=== PATIENT | male | born 1950 | race Caucasian/White ===

== ENCOUNTER → 2019-08-08 10:34 | Outpatient (BNVA) | payer MEDICARE, SELFPAY | PROVIDERS: Family Provider Family Medicine; PCP Family Medicine; Visit Provider Otolaryngology | DX: J32.9 Chronic sinusitis, unspecified (principal) | CPT/HCPCS: 99213; 99214 ==

== ENCOUNTER 2019-10-07 12:16 | Day surgery (SDC) | payer MEDICARE, SELFPAY ==
[2019-10-07] VITALS (8 sets, daily range): BP systolic 105–139; BP diastolic 68–85; PULSE 76–98; RESP 16–25; TEMP 36.2–36.9; O2SAT 94–96; BMI 35.2
[2019-10-07 12:55] LABS: Glucose Point of Care 151 mg/dL (70-110)
--- NOTE | 2019-10-07 13:01 | P.ANESASSM_ITS ---
Pre-Anesthetic Assessment Pre-Anesthetic Assessment: Height/Weight: Height 1.7 m Weight 102.058 kg Temp Pulse Resp BP Pulse Ox 97.9 F 76 18 105/82 94 10/07/19 12:43 10/07/19 12:43 10/07/19 12:43 10/07/19 12:43 10/07/19 12:43 Preop Diagnosis: sinusitus Proposed Procedure: Operation Date: 10/07/19 13:10 Proposed Procedures p Endoscopic Endonasal Sinus Surgery 41643 J32.9(Not Applicable) - Karri Robledo MD Familial anesthetic complications: None Was Beta Ever taken within 24 h ours: Yes Last intake: Intake Last Liquid Date 10/07/19 Last Liquid Time 00:00 Last Solid Date 10/06/19 Last Solid Time 20:00 Social: Social History: No alcohol and No tobacco Exam: Pre-Anes Outpt Exam: alert, oriented x 3, clear to auscultation bilaterally and regular rate & rhythm Airway: Cervical ROM: WNL MP: 2 Dentition: Chipped Additional comments: missing Pulmonary: Pulmonary: None reported CV/HEM: CV/HEM: Afib and HTN Comments: Hypertrophic obstructive cardiomopathy - Keep afterload up, slow HR, decreased inotropy (echo 2019 ef 65%, mild avr, pvr, mildly increased LA size, and basal septal hypertrophy) : : None reported Comments: R kidney removed d/t tumor (nephrectomY) Hepatic: Hepatic: None reported GI: GI: None reported Metabolic: Metabolic: DM Comments: took metformin Musc/skel: Musc/skel: None reported Neuropsych: Neuropsych: None reported Anesthetic Plan: ASA status: 3 Anesthesia: General Other: off eliquis since monday Risk of > 500 ml blood loss (7ml/kg in children): No PFSH Anesthesia PFSH: Social History Smoking and tobacco status: never smoked Alcohol intake: never Data Anesthesia Other Labs: Laboratory Results - last 48 hr 10/07/19 12:52 POC Glucose 151 Cardiac Studies: No Data to Display
[2019-10-07] MEDS: sodium chloride 0.9% 1,000 ML 30 ML IV (13:27)
--- NOTE | 2019-10-07 14:01 | P.OP_ITS ---
Operative Report Date of procedure: October 07, 2019 Pre-op Diagnosis: chronic sinusitus Post-op diagnosis: same Post-op Findings: Chronic sinusitis Procedure Done: Endoscopic right maxillary sinusotomy with removal of diseased tissue, endoscopic right ethmoidectomy Specimens removed/disposition: Sinus contents Pathology: Sinus contents Surgeon: Karri Robledo Anesthesia: General Complications: None Condition: stable Disposition: PACU Brief History: Dalton Joy is a 69-year-old male who has chronic sinusitis that is failed medical management. Procedure: The patient was taken to the operating room and under satisfactory general endotracheal anesthesia the nose was prepped draped and inspected. The 0 degree endoscope was used throughout. There was purulent material in the right middle meatus. The middle turbinate was retracted medially allowing access to the middle meatus. The maxillary sinus ostia was identified. The ostia was cannulated with a curved antral suction. Purulent debris and thick green material was encountered. This was removed and sent for histopathologic evaluation. The backbiting forceps was used to open the office. The bulla ethmoidalis was entered. Hyperplastic mucosa was identified and removed with a Ines forceps. The cribriform and the grand lamella was identified and preserved. Once all diseased tissue had been removed Surgi-Manan was placed in the middle meatus. The globes were palpated throughout the procedure and remained soft. Postoperatively visual richter were at preoperative levels. The patient tolerated the procedure well and was allowed to awaken and taken to recovery room where he was observed. During observation postoperative care instructions and counseling including detailed and written and verbal instructions are given to the patient. Once the patient verbalized understandin g of all instructions and once he met discharge criteria he was discharged in satisfactory and stable condition.
[2019-10-07] MEDS: oxymetazoline 0.05% Nasal Spray 15 mL 1 SPRAY NOSTRIL-B (15:03)
--- NOTE | 2019-10-07 15:43 | SUR.PHASEI ---
1540 PATIENT TO OPS AT THIS TIME. RR EVEN AND UNLABORED. DRESSING INTACT TO NOSE.
--- NOTE | 2019-10-07 15:44 | SUR.PHASEI ---
1519 PATIENT TO PACU AT THIS TIME. RR EVEN AND UNLABORED. DRESSING TO NOSE, CDI.
--- NOTE | 2019-10-07 15:51 | SUR.PHASEII ---
PATIENT IS LEAVING VIA CAB TO A MOTEL TO SPEND THE NIGHT. HE WILL DRIVE HIMSELF HOME TOMORROW.
[2019-10-07] MEDS: TRAMadol 50 mg Tablet PO (16:32)
== END 2019-10-07 17:35 | disposition home or self-care (01) ==
PROVIDERS: Family Provider Family Medicine; PCP Family Medicine; Visit Provider Otolaryngology
PROC: (CPT 31231; principal; 2019-10-07 13:10)
DX: J32.9 Chronic sinusitis, unspecified (principal); I48.91 Unspecified atrial fibrillation; E11.9 Type 2 diabetes mellitus without complications; I10 Essential (primary) hypertension; Z82.49 Family history of ischemic heart disease and other diseases of the circulatory system; Z01.818 Encounter for other preprocedural examination
CPT/HCPCS: 31255; 31267; 12345; 36416; 82962; 88304; 88305; 99213; 99214; J2001; J2704; J3010; J7030

== ENCOUNTER → 2019-10-21 10:47 | Outpatient (BNVA) | payer MEDICARE, SELFPAY | PROVIDERS: Family Provider Family Medicine; PCP Family Medicine; Visit Provider Otolaryngology | DX: J32.9 Chronic sinusitis, unspecified (principal) | CPT/HCPCS: 31237; 99024 ==

== ENCOUNTER 2021-04-27 11:23 | Outpatient (CLI) | payer MEDICARE, SELFPAY ==
--- NOTE | 2021-04-27 11:29 | MR_ITS ---
WS: [id number] INDICATION: Kidney removal 2005 TECHNIQUE: MR of the abdomen without and with gadolinium enhancement. Axial T1, T2, coronal T2, coron al 2-D fiesta, and multiplanar post gadolinium imaging with fat saturation technique. FINDINGS: Some images degraded by breathing artifact. Postoperative changes cholecystectomy. Prior right nephrectomy. Nephrectomy bed is normal in appearan ce. No evidence of recurrent mass or lesion in the nephrectomy bed. Left kidney is normal in appearan ce. No hydronephrosis in the left kidney. Small amount of perinephric edema. Normal portal vein and splenic vein. Normal common bile duct. Normal pancreas. Adrenal glands are nor mal. Normal caliber abdominal aorta. T2 hyperintense lesion in the inferior right hepatic lobe measur ing 3.1 x 3.1 cm with patchy peripheral enhancement most consistent with benign cavernous hemangioma. Additional tiny cyst in the inferior right hepatic lobe. MR/MR abdomen wo/w con* [id number] IMPRESSION: 1. Prior right nephrectomy. Nephrectomy bed is normal in appearance. No eviden ce of recurrent mass or lesion in the nephrectomy bed. 2. Left kidney is normal in appearance. 3. Normal adrenal glands. 4. Prior cholecystectomy. 5. T2 hyperintense lesion in the inferior right hepatic lobe measuring 3.1 x 3.1 cm with patchy peripheral enhancement most consistent with benign cavernous hemangioma
== END 2021-04-27 11:24 | disposition home or self-care (01) ==
LOC: RADSHAW 11:27
PROVIDERS: PCP Nurse Practitioner Family; Visit Provider Nurse Practitioner Family
DX: Z90.5 Acquired absence of kidney (principal); Z90.49 Acquired absence of other specified parts of digestive tract; K76.9 Liver disease, unspecified
CPT/HCPCS: 74183; A9579

== ENCOUNTER → 2022-05-26 14:01 | Outpatient (BNVA) | payer MEDICARE, SELFPAY | PROVIDERS: PCP Family Medicine; Visit Provider Internal Medicine Cardiovascular Disease | DX: I42.2 Other hypertrophic cardiomyopathy (principal); I10 Essential (primary) hypertension; I48.91 Unspecified atrial fibrillation; Z79.01 Long term (current) use of anticoagulants; E11.9 Type 2 diabetes mellitus without complications; Z79.84 Long term (current) use of oral hypoglycemic drugs | CPT/HCPCS: 99213; 99214 ==

== ENCOUNTER 2023-04-10 14:56 | Emergency (ER) | payer MEDICARE, SELFPAY ==
[2023-04-10 14:59] VITALS: BP 164/95; PULSE 79; RESP 16; TEMP 36.4; O2SAT 96; BMI 33.6
--- NOTE | 2023-04-10 15:11 | ECG_ITS ---
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 Measurements Intervals [place] Rate: 87 P: 0 VT: 0 QRS: 7 QRSD: 130 T: 129 QT: 364 QTc: 439 Interpretive Statements ATRIAL FIBRILLATION ANTEROSEPTAL MYOCARDIAL INFARCTION , OF INDETERMINATE AGE [40+ ms Q WAVE IN V1-V4] MODERATE T-WAVE ABNORMALITY, CONSIDER LATERAL ISCHEMIA [-0.1+ mV T-WAVE IN I/aVL/V5/V6] No previous ECG available for comparison Electronically Signed On 04-10-2023 22:29:27 CDT by Jonnie Paez M.D. [email or web address]
--- NOTE | 2023-04-10 15:12 | CTR_ITS ---
PROCEDURE INFORMATION: Exam: CT Head Without Contrast Exam date and time: 04/10/2023 3:21 PM Age: 73 years old Clinical indication: Visual disturbance; Additional info: Vision changes left hand numbness TECHNIQUE: Imaging protocol: Computed tomography of the head without contrast. Radiation optimization: All CT scans at this facility use at least one of these dose optimization techniques: automated exposure control; mA and/or kV adjustment per patient size (includes targeted exams where dose is matched to clinical indication); or iterative reconstruction. REPORTING DATA: Count of CT and Cardiac NM exams in prior 12 months: This patient has received 0 known CTs and 0 known cardiac nuclear medicine studies in the 12 months prior to the current study. COMPARISON: No relevant prior studies available. RADIATION DOSE METRICS: Total DLP (mGy-cm): 1109.48 FINDINGS: Brain: Diffuse cerebral atrophy, consistent with patient's age. No hemorrhage. Chronic right frontal encephalomalacia. Smaller area of right occipital encephalomalacia. Otherwise preserved hilliard-white matter differentiation. Old lacunar infarct versus prominent perivascular space at the right basal ganglia. Mild patchy cerebral white matter hypoattenuation in keeping with chronic microvascular ischemic change. No mass effect. Intracranial vascular calcifications. Cerebral ventricles: Ventricles are in proportion to the degree of atrophy. Paranasal sinuses: Complete opacification of the right frontal and partially imaged right maxillary sinuses with periosteal thickening. Near complete opacification of the right ethmoid air cells. Mastoid air cells: Visualized mastoid air cells are well aerated. Bones/joints: Unremarkable. No acute fracture. Soft tissues: Unremarkable. CT/CT head wo con* [id number] IMPRESSION: 1. No acute intracranial findings. 2. Diffuse cerebral atrophy and chronic microvascular ischemic change with areas of chronic appearing encephalomalacia at the right frontal and occipital lobes. 3. Chronic severe right paranasal sinus disease.
[2023-04-10 15:50] LABS: Basophils % 0.5 %; Eosinophils # 0.1 10^3/uL (0.0-0.8); Eosinophils % 1.6 %; Hematocrit 47.5 % (37-53); Lymphocytes # 1.4 10^3/uL (0.8-4.8); Lymphocytes % 16.4 %; Mean Corpuscular HGB Conc 34.9 g/dL (30-55); Mean Corpuscular Hemoglobin 32.4 pg (27-33); Mean Corpuscular Volume 92.6 fl (82-101); Mean Platelet Volume 10.9 fL (7.4-10.4); Monocytes # 0.7 10^3/uL (0.2-0.9); Monocytes % 8.5 %; Neutrophils % 72.8 %; Nucleated Red Blood Cells % 0 %; Platelet Count 229 10^3/cmm (157-399); Red Blood Count 5.13 10^6/uL (3.85-5.65); Red Cell Distribution Width 11.9 % (12.1-15.1); White Blood Count 8.66 10^3/uL (3.29-11.43)
--- NOTE | 2023-04-10 15:56 | ED_ITS ---
HPI - General Adult General: Chief complaint: Eye Problems Stated complaint: weakness in left hand, vision problems Time Seen by Provider: 04/10/23 15:10 Source: patient Mode of arrival: ambulatory History of Present Illness: 73-year-old male presents emergency room with 5 days of symptoms of vision changes bilaterally and about 3 days of what he feels like his ataxia and loss of sensation in his left hand. He has not had any headache no trauma. He takes apixaban for atrial fibrillation. He has not had any fever sweats chills or abdominal pain speech and swallowing have remained unaffected. The left hand numbness seems to have resolved. Onset (ago): day(s) (5) Severity: mild Relieving factors: none Exacerbating factors: none Associated symptoms: Deny chest pain, confusion, cough, diaphoresis, decreased appetite, dyspnea, fevers/chills, headache(s), malaise, nausea, rash, palpitations, seizures, short of breath, syncope, vomiting or weakness Review of Systems Const: Denies: fever(s), chills, malaise or diaphoresis ENMT: Denies: throat pain, ear or mastoid pain, nasal discharge or nasal congestion Card: Denies: chest pain, palpitations or syncope Resp: Denies: dyspnea GI: Denies: nausea or vomiting : Denies: flank pain, dysuria, urinary frequency or urinary urgency Skin/Breast: Denies: rash Neuro: Denies: headache(s) or confusion [facility] [place] ED PFSH: Medical History (Updated 04/10/23 @ 16:40 by Cruzito Roberto DO) Atrial fibrillation Cardiomyopathy Chronic sinusitis Diabetes type 2, controlled Hypertension Surgical History History of cholecystectomy History of nasal surgery History of nephrectomy, right History of tonsillectomy and adenoidectomy Family History Father Myocardial infarction Brother Myocardial infarction Social History Smoking and tobacco status: never smoked Alcohol intake: never Substance/Drug Use: never Course Vital Signs: Vital signs: Vital Signs Temperature 97.6 F 04/10/23 14:59 Pulse Rate 81 04/10/23 17:13 Respiratory Rate 16 04/10/23 17:13 Blood Pressure 137/79 04/10/23 16:45 Pulse Oximetry 99 04/10/23 17:13 MDM - General Adult Medical Decision Making Slight decrease in left washer meat strength vision symptoms have resolved. Nothing acute on the CT. We will set him up for an MRI as well as carotid studies and follow-up with neurology return if has worsening symptoms. Repeat exam at time of discharge there is no focal neurologic deficits. He is already on Eliquis we will add baby aspirin daily he is also already on a statin. Medical Records I reviewed the patient's medical records. Lab Data I reviewed the patient's lab results. 04/10/23 15:44 04/10/23 15:[address] 04/10/23 15:12 IMPRESSION: 1. No acute intracranial findings. 2. Diffuse cerebral atrophy and chronic microvascular ischemic change with areas of chronic appearing encephalomalacia at the right frontal and occipital lobes. 3. Chronic severe right paranasal sinus disease. Laboratory Results WBC 8.66 10^3/uL (3.29-11.43) 04/10/23 15:44 RBC 5.13 10^6/uL (3.85-5.65) 04/10/23 15:44 Hgb 16.60 g/dL (11.27-16.99) 04/10/23 15:44 Hct 47.5 % (37-53) 04/10/23 15:44 MCV 92.6 fl (82-101) 04/10/23 15:44 MCH 32.4 pg (27-33) 04/10/23 15:44 MCHC 34.9 g/dL (30-55) 04/10/23 15:44 RDW 11.9 % (12.1-15.1) L 04/10/23 15:44 Plt Count 229 10^3/cmm (157-399) 04/10/23 15:44 MPV 10.9 fL (7.4-10.4) H 04/10/23 15:44 Neut % (Auto) 72.8 % 04/10/23 15:44 Lymph % (Auto) 16.4 % 04/10/23 15:44 [place] % (Auto) 8.5 % 04/10/23 15:44 Eos % (Auto) 1.6 % 04/10/23 15:44 Baso % (Auto) 0.5 % 04/10/23 15:44 Neut # (Auto) 6.30 10^3/uL (1.8-7.7) 04/10/23 15:44 Lymph # (Auto) 1.4 10^3/uL (0.8-4.8) 04/10/23 15:44 [place] # (Auto) 0.7 10^3/uL (0.2-0.9) 04/10/23 15:44 Eos # (Auto) 0.1 10^3/uL (0.0-0.8) 04/10/23 15:44 Baso # (Auto) 0.0 10^3/uL (0.0-0.1) 04/10/23 15:44 Nucleated RBC % (auto) 0 % 04/10/23 15:44 Nucleated RBCs # 0.0 /100WBC 04/10/23 15:44 Sodium 134 mmol/L (136-145) L 04/10/23 15:44 Potassium 4.7 mmol/L (3.5-5.1) 04/10/23 15:44 Chloride 99 mmol/L (98-107) 04/10/23 15:44 Carbon Dioxide 23 mmol/L (22-29) 04/10/23 15:44 Anion Gap 16.7 (5-19) 04/10/23 15:44 BUN 22 mg/dL (8-23) 04/10/23 15:44 Creatinine 1.4 mg/dL (0.7-1.2) H 04/10/23 15:44 GFR Calculation Not Reportable 04/10/23 15:44 Glucose 325 mg/dL (65-115) H 04/10/23 15:44 Calculated Osmolality 294 mOsm/kg (285-295) 04/10/23 15:44 Calcium 9.1 mg/dL (8.5-10.5) 04/10/23 15:44 Total Bilirubin 0.7 mg/dL (0.15-1.2) 04/10/23 15:44 AST 16 U/L (0-40) 04/10/23 15:44 ALT 12 U/L (0-41) 04/10/23 15:44 Alkaline Phosphatase 112 U/L (40-130) 04/10/23 15:44 Total Protein 7.1 g/dL (6.6-8.7) 04/10/23 15:44 Albumin 4.1 g/dL (3.5-5.2) 04/10/23 15:44 Globulin 3.0 g/dL (1.3-4.6) 04/10/23 15:44 Discharge Plan Discharge Patient Disposition: Home Clinical Impression: CVA (cerebral vascular accident), Hypertrophic cardiomyopathy, Type 2 diabetes mellitus, Atrial fibrillation Condition: Stable Prescriptions: New aspirin 81 mg tablet,delayed release (DR/EC) 81 mg PO DAILY Qty: 30 0RF No Action metformin 1,000 mg tablet extended release 24hr 1,000 mg PO BID metoprolol succinate 50 mg capsule,sprinkle,ER 24hr 50 mg PO Q24H omeprazole magnesium 20 mg tablet,delayed release (DR/EC) 20 mg PO .EVERY OTHER DAY multivitamin Tablet 1 tab PO QAM niacin 500 mg tablet extended release 500 mg PO BID omega 5-osq-ivi-fish oil [Fish Oil] 1,000 mg (120 mg-180 mg) capsule 1 cap PO BID atorvastatin 40 mg tablet 40 mg PO .QOD Farxiga 5 mg tablet 5 mg PO DAILY Eliquis 5 mg tablet 5 mg PO BID Qty: 180 3RF Ozempic 0.25 mg or 0.5 mg(2 mg/1.5 mL) pen injector 1 mg SUBCUT Q7D Qty: 1.5 11RF Discharge Orders: Discharge ED (Routine); Ordered 04/10/23 Ordered By: Cruzito Roberto Referrals: Karri Roper MD [Primary Care Provider] - Discharge Diet: Usual diet Discharge Activity: Increase activity as tolerated Patient Instructions: Opioid Safety, Pain Management Activity Restrictions/Additional Instructions: You are seen today for vision changes and weakness in your left hand. Your symptoms began long enough ago that intervention. CT of your head acute changes. Recommend that you add a baby aspirin daily to your current regimen continue the apixaban atorvastatin. Case management make arrangements for an MRI of the head as well as carotid duplex and follow-up with neurology. Coding Level of Care Code ED Spray Crew for Kervin Strauss NIH stroke score NIHSS Level Of Consciousness - 1a: 0 Level Of Consciousness Questions - 1b: Both Correct Level Of Consciousness Commands - 1c: Both Correct Best Gaze - 2: Normal Visual Mcleod - 3: No Visual Loss Facial Palsy - 4: Normal Motor Arm Right - 5: No Drift Motor Arm Left - 5: No Drift Motor Leg Right - 6: No Drift Motor Leg Left - 6: No Drift Limb Ataxia - 7: Absent Sensory - 8: Normal Best Language - 9: No Aphasia Dysarthia - 10: Normal Extinction And Inattention - 11: 0 Score Total Score: 0
[2023-04-10 16:07] VITALS: BP 121/85; PULSE 84; RESP 16; O2SAT 96
[2023-04-10 16:25] LABS: Alanine Aminotransferase 12 U/L (0-41); Albumin Level 4.1 g/dL (3.5-5.2); Alkaline Phosphatase 112 U/L (40-130); Anion Gap 16.7 (5-19); Aspartate Amino Transferase 16 U/L (0-40); Blood Urea Nitrogen 22 mg/dL (8-23); Calcium 9.1 mg/dL (8.5-10.5); Carbon Dioxide 23 mmol/L (22-29); Chloride 99 mmol/L (98-107); Glucose 325 mg/dL (65-115); Osmolality Calculated 294 mOsm/kg (285-295); Potassium 4.7 mmol/L (3.5-5.1); Sodium 134 mmol/L (136-145); Total Bilirubin 0.7 mg/dL (0.15-1.2); Total Protein 7.1 g/dL (6.6-8.7)
[2023-04-10 16:45] VITALS: BP 137/79; PULSE 80; RESP 16; O2SAT 97
[2023-04-10 17:13] VITALS: PULSE 81; RESP 16; O2SAT 99
--- NOTE | 2023-04-11 08:25 | DCPLANNER ---
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 delicatessen department manager faxed signed order to centralized scheduling, who will call patient with appointment information.
== END 2023-04-10 17:14 | disposition home or self-care (01) ==
PROVIDERS: Emergency Provider Family Medicine; PCP Family Medicine
DX: I63.9 Cerebral infarction, unspecified (principal); I42.2 Other hypertrophic cardiomyopathy; E11.9 Type 2 diabetes mellitus without complications; I48.91 Unspecified atrial fibrillation; Z79.01 Long term (current) use of anticoagulants; Z79.84 Long term (current) use of oral hypoglycemic drugs
CPT/HCPCS: 70450; 80053; 85025; 93005; 99285

== ENCOUNTER 2023-05-05 14:46 | Outpatient (CLI) | payer MEDICARE, SELFPAY ==
--- NOTE | 2023-05-05 14:56 | USCV_ITS ---
Dalton Tejada Age: 73 Gender: M : 1950 Exam Date: 05/05/2023 15:18 Ordering Phys: Cruzito Roberto DO Technologist: MEGHANA Exam Location: [facility] [place] Indication: TIA Risk Factors: Previous Vascular Surgery: Right Brachial BP: / Left Brachial BP: / Right Left Velocity (cm/s) Spectral Plaque Velocity (cm/s) Spectral Plaque Syst/Diast Broadening Syst/Diast Broadening 51.90/ 11.80 Prox CCA 86.70 / 14.90 59.80/ 11.20 Mid CCA 79.20 / 17.60 46.00/ 10.50 Distal CCA 56.90 / 16.90 51.90/ 14.50 Prox ICA 75.80 / 21.00 51.90/ 14.50 Mid ICA 70.40 / 23.00 52.60/ 19.70 Distal ICA 86.40 / 27.60 82.20 ECA 87.40 0.88 ICA/CCA 1.00 Antegrade Vertebral Antegrade 39.40/ 7.90 cm/s 31.20/ 7.90 cm/s Tri Subclavian Tri 0.00 99.10 FINDINGS Comparison: none available. No significant elevation of systolic or diastolic velocities. Waveforms are normal. No significant amount of calcified plaque or intimal thickening identified. CONCLUSIONS Normal carotid doppler ultrasound. Dr. Aileen Youssef DO (Electronically Signed) Final Date: 05 May 2023 16:04 S
== END 2023-05-05 14:47 | disposition home or self-care (01) ==
LOC: RAD 14:47
PROVIDERS: PCP Family Medicine; Visit Provider Family Medicine
DX: I63.89 Other cerebral infarction (principal)
CPT/HCPCS: 93880

== ENCOUNTER 2023-05-10 10:58 | Outpatient (CLI) | payer MEDICARE, SELFPAY ==
--- NOTE | 2023-05-10 11:15 | MR_ITS ---
WS: [id number] MRI BRAIN WITH AND WITHOUT CONTRAST HISTORY: CVA COMPARISON: CT head 04/10/2023 TECHNIQUE: Multiplanar imaging performed through the brain with MultiHance 20 ml's IV. Diffusion abnormalities are noted bilaterally but greatest on the RIGHT. No ADC map corresponding abn ormality to suggest acute infarct. Diffusion signal changes along the watershed distribution between the anterior, middle and posterior cerebral arteries on the RIGHT. There is a single diffusion abnorm ality in the posterior LEFT frontal lobe above the lateral ventricles. On the ADC map these are predo minantly of increased signal suggesting are at least subacute to chronic appearance. On the postcontr ast images there is serpiginous enhancement suggesting these are not acute. There is increased T2 sig nal associated with the subacute infarcts. Cortical laminar necrosis is noted on the T1 sequence in t he posterior RIGHT frontal and the RIGHT occipital lobes. Mild bilateral cerebral and cerebellar atrophy. No hemorrhage. Mildly prominent ventricles and extra-axial spaces on the basis of atrophy. Clivus and pituitary gland are normal. No cerebellar abnormality. No inferior displacement of the cerebellar tonsils Serpiginous enhancement is noted along the watershed distribution of the RIGHT cerebral infarct. Serp iginous enhancement involves portions of the RIGHT frontal, parietal and occipital lobes. Dural venous sinuses are normal. Paranasal sinuses: Marked RIGHT frontal and ethmoid and maxillary sinus disease with near complete op acification and variable signal Mastoid air cells: Normal. Calvarium and scalp: Normal. IMPRESSION: 1. Subacute to chronic RIGHT watershed infarct with serpiginous enhancement. No associated hemorrhag e. There is an additional subacute infarct in the posterior LEFT frontal lobe noted in the ventricula r white matter. Suspect infarcts are greater than 2 weeks old. 2. No acute infarct. 3. Mild atrophy. 4. RIGHT frontal, ethmoid and maxillary sinus disease.
[2023-05-10] MEDS: gadobenate dimeglumine 20 mL vial IV (12:01)
== END 2023-05-10 10:59 | disposition home or self-care (01) ==
PROVIDERS: PCP Family Medicine; Visit Provider Family Medicine
DX: I63.9 Cerebral infarction, unspecified (principal); J32.0 Chronic maxillary sinusitis
CPT/HCPCS: 70553; A9577

== ENCOUNTER 2024-03-28 06:00 | Outpatient (RCR) | payer MEDICARE, SELFPAY | END 2024-04-06 18:00 | disposition home or self-care (01) | LOC: WPT 06:00 | PROVIDERS: Visit Provider Psychiatry & Neurology Neurology | DX: R53.1 Weakness (principal); Z86.73 Personal history of transient ischemic attack (TIA), and cerebral infarction without residual deficits | CPT/HCPCS: 97110; 97140; 97161; 97530 ==

== ENCOUNTER 2024-04-07 06:00 | Outpatient (RCR) | payer MEDICARE, SELFPAY | END 2024-05-06 23:59 | disposition home or self-care (01) | LOC: WPT 06:00 | PROVIDERS: PCP Nurse Practitioner Family; Visit Provider Psychiatry & Neurology Neurology | DX: R53.1 Weakness (principal) | CPT/HCPCS: 97110; 97140; 97530 ==

== ENCOUNTER → 2024-04-12 08:27 | Outpatient (BNVA) | payer MEDICARE, SELFPAY | PROVIDERS: PCP Nurse Practitioner Family; Visit Provider Nurse Practitioner Family | DX: E11.9 Type 2 diabetes mellitus without complications (principal); R14.0 Abdominal distension (gaseous) | CPT/HCPCS: 80053; 82150; 82784; 83516; 83690; 84443; 85025; 85651; 86140 ==

== ENCOUNTER 2024-05-07 06:00 | Outpatient (RCR) | payer MEDICARE, SELFPAY | END 2024-06-06 23:59 | disposition home or self-care (01) | LOC: WPT 06:00 | PROVIDERS: PCP Nurse Practitioner Family; Visit Provider Psychiatry & Neurology Neurology | DX: R53.1 Weakness (principal); Z86.73 Personal history of transient ischemic attack (TIA), and cerebral infarction without residual deficits | CPT/HCPCS: 97110; 97140; 97530 ==

== ENCOUNTER → 2024-12-04 14:44 | Outpatient (BNVA) | payer MEDICARE, SELFPAY | PROVIDERS: PCP Nurse Practitioner Family; Visit Provider Nurse Practitioner Family | DX: E11.9 Type 2 diabetes mellitus without complications (principal); I42.2 Other hypertrophic cardiomyopathy; I10 Essential (primary) hypertension; I42.9 Cardiomyopathy, unspecified; N18.30 Chronic kidney disease, stage 3 unspecified; S80.819A Abrasion, unspecified lower leg, initial encounter; X58.XXXA Exposure to other specified factors, initial encounter | CPT/HCPCS: 80053; 82310; 83036; 83970; 85025; 86160; 86162 ==

== ENCOUNTER → 2025-06-03 10:11 | Outpatient (BNVA) | payer MEDICARE, SELFPAY | PROVIDERS: PCP Nurse Practitioner Family; Visit Provider Nurse Practitioner Family | DX: E11.9 Type 2 diabetes mellitus without complications (principal); I10 Essential (primary) hypertension; I42.9 Cardiomyopathy, unspecified; I48.91 Unspecified atrial fibrillation | CPT/HCPCS: 83036 ==